=== PATIENT | male | born 1975 | race Caucasian/White ===

== ENCOUNTER 2017-06-30 14:58 | Emergency (ER) | payer MEDICAID ==
[2017-06-30] MEDS ORDERED: Sodium Chloride 0.9% 1,000 ML IV ONE ×2 (15:10→16:31)
[2017-06-30] MEDS ORDERED: Ondansetron 4 MG/2 ML SDV IVPUSH ONE (15:12)
[2017-06-30] MEDS ORDERED: Pantoprazole 40 MG Vial IVPUSH ONE (15:12)
--- NOTE | 2017-06-30 15:15 | EDM.PDOC ---
ED HPI GENERAL MEDICAL PROBLEM - General Stated Complaint: vomiting/STOMACH PAIN Time Seen by Provider: 06/30/17 14:58 Source of Information: Reports: Patient, Family History Limitations: Reports: No Limitations - History of Present Illness INITIAL COMMENTS - FREE TEXT/NARRATIVE: 42 y.o.w m with a H/O NIDDM, came with his family to the ed due to N/V/D. The symptoms started with diarrhea. Pt's son was dx'd with C Diff a few days ago. No dizziness but pt stated he feels week but is able to ambulate well. BP 113/ 62 pulse 79 Temp 36.7 Pulse ox 99 RR 17. 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) (imodium 4 mg) Upper Abdomen Pain Score (Numeric/FACES): 9 - Related Data Allergies Allergy/AdvReac Type Severity Reaction Status Date / Time No Known Allergies Allergy Verified 06/30/17 17:08 Home Meds: Home Meds Escitalopram [Lexapro] 20 mg PO DAILY 06/30/17 [History] Exenatide Microspheres [Bydureon Pen] 2 mg IM WEEKLY 06/30/17 [History] metroNIDAZOLE [Flagyl] 500 mg PO Q8H #30 tab 06/30/17 [Rx] Social & Family History - Tobacco Use Years of Tobacco use: 26 ED ROS GENERAL - Review of Systems Review Of Systems: See Below Constitutional: Reports: No Symptoms HEENT: Reports: No Symptoms Respiratory: Reports: No Symptoms Cardiovascular: Reports: No Symptoms Endocrine: Reports: High Glucose (NIDDM) GI/Abdominal: Reports: No Symptoms, Diarrhea, Nausea, Vomiting : Reports: No Symptoms Musculoskeletal: Reports: No Symptoms Skin: Reports: No Symptoms Neurological: Reports: No Symptoms Psychiatric: Reports: No Symptoms Hematologic/Lymphatic: Reports: No Symptoms Immunologic: Reports: No Symptoms ED EXAM, GI/ABD - Physical Exam Exam: See Below Exam Limited By: No Limitations General Appearance: Alert, WD/WN, Moderate Distress Eyes: Bilateral: Normal Appearance Ears: Normal External Exam Nose: Normal Inspection Throat/Mouth: Normal Inspection, Normal Lips, Normal Gums, No Airway Compromise , Other (dry mucosal membrane) Head: Atraumatic, Normocephalic Neck: Normal Inspection, Supple, Non-Tender, Full Range of Motion Respiratory/Chest: No Respiratory Distress, Lungs Clear, Normal Breath Sounds, Chest Non-Tender Cardiovascular: Normal Peripheral Pulses, Regular Rate, Rhythm, No Edema GI/Abdominal Exam: No Organomegaly, No Distention, No Abnormal Bruit, No Mass, Pelvis Stable, Tender (epigastric tenderness), Abnormal Bowel Sounds (Male) Exam: Deferred Rectal (Males) Exam: Deferred Back Exam: Normal Inspection, Full Range of Motion Extremities: Normal Inspection, Normal Range of Motion Neurological: Alert, Oriented, CN II-XII Intact, Normal Cognition, Normal Gait Psychiatric: Normal Affect, Normal Mood Skin Exam: Warm, Dry, Intact, Normal Color, No Rash Lymphatic: No Adenopathy EKG INTERPRETATION EKG Date: 07/01/17 Time: 07:35 Rhythm: A-Fib Rate (Beats/Min): 117 [place]: Normal P-Wave: Present QRS: Normal ST-T: Normal QT: Normal Comparison: NA - No Prior EKG Course - Vital Signs Text/Narrative:: 42 y.o.w m with a H/O NIDDM, came with his family to the ed due to N/V/D. The symptoms started with diarrhea. Pt's son was dx'd with C Diff a few days ago. No dizziness but pt stated he feels week but is able to ambulate well. BP 113/ 62 pulse 79 Temp 36.7 Pulse ox 99 RR 17. PE: Gastroenteritis, NIDDM Labs: ABG pH 7.47 WBC 15.4 HGB 18.6 Glc 130 HA1C 6.6 C diff and stool culture results are pending Impression: NIDDM with hyperglycemia, Dehydration, Gastroenteritis Tx: NS. Zofran, Fragyl, Imodium Reexam: Pt inproved. 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: D/C with instructions Last Recorded V/S: Last Vital Signs Temp 36.8 C 06/30/17 15:18 Pulse 75 06/30/17 17:15 Resp 16 06/30/17 17:15 BP 100/56 L 06/30/17 17:15 Pulse Ox 98 06/30/17 17:15 - Orders/Labs/Meds Orders: Active Orders 24 hr Category Date Time Status CDIFF TOXIN A+B GROUP [OP] Stat Lab 06/30/17 18:42 Ordered CULTURE-STOOL [MREF] Stat Lab 06/30/17 18:42 Ordered Labs: Laboratory Tests 06/30/17 06/30/17 06/30/17 Range/Units 15:20 15:20 15:20 WBC 15.4 H (4.5-12.0) X10-3/uL RBC 5.95 H (4.30-5.75) x10(6)uL Hgb 18.3 H (11.5-15.5) g/dL Hct 53.6 H (30.0-51.3) % MCV 90.0 (80-96) fL MCH 30.7 (27.7-33.6) pg MCHC 34.1 (32.2-35.4) g/dL RDW 12.5 (11.5-15.5) % Plt Count 215 (125-369) X10(3)uL MPV 8.8 (7.4-10.4) fL Add Manual Diff Yes Neutrophils % (Manual) 78 (46-82) % Band Neutrophils % 5 (0-6) % Lymphocytes % (Manual) 10 L (13-37) % Monocytes % (Manual) 5 (4-12) % Eosinophils % (Manual) 1 (0-5) % Basophils % (Manual) 1 (0-2) % PT 10.5 (8.7-11.1) INR 1.04 (0.89-1.13) ABG pH (7.35-7.45) ABG pCO2 (35-45) mmHg ABG pO2 (83-108) mmHg ABG HCO3 (22-26) mmol/L ABG O2 Saturation (96-97) % ABG Base Excess (-2-2) Loc Test O2 Delivery Device Sodium 138 (135-145) mmol/L Potassium 4.4 (3.5-5.3) mmol/L Chloride 103 (100-110) mmol/L Carbon Dioxide 28 (21-32) mmol/L BUN 17 (7-18) mg/dL Creatinine 0.9 (0.70-1.30) mg/dL Est Cr Clr Drug Dosing 108.01 mL/min Estimated GFR (MDRD) > 60 (>60) BUN/Creatinine Ratio 18.9 (9-20) Glucose 130 H (80-116) mg/dL Hemoglobin A1c (4.5-6.2) % Calcium 9.2 (8.6-10.2) mg/dL Urine Color (YELLOW) Urine Appearance (CLEAR) Urine pH (5.0-6.5) Ur Specific [place] (1.010-1.025) Urine Protein (NEGATIVE) mg/dL Urine Glucose (UA) (NEGATIVE) mg/dL Urine Ketones (NEGATIVE) mg/dL Urine Occult Blood (NEGATIVE) Urine Nitrite (NEGATIVE) Urine Bilirubin (NEGATIVE) Urine Urobilinogen (NEGATIVE) mg/dL Ur Leukocyte Esterase (NEGATIVE) Urine RBC (0) Urine WBC (0) Ur Squamous Epith Cells (NS,R,O) Urine Bacteria (NS) 06/30/17 06/30/17 06/30/17 Range/Units 15:20 16:08 16:15 WBC (4.5-12.0) X10-3/uL RBC (4.30-5.75) x10(6)uL Hgb (11.5-15.5) g/dL Hct (30.0-51.3) % MCV (80-96) fL MCH (27.7-33.6) pg MCHC (32.2-35.4) g/dL RDW (11.5-15.5) % Plt Count (125-369) X10(3)uL MPV (7.4-10.4) fL Add Manual Diff Neutrophils % (Manual) (46-82) % Band Neutrophils % (0-6) % Lymphocytes % (Manual) (13-37) % Monocytes % (Manual) (4-12) % Eosinophils % (Manual) (0-5) % Basophils % (Manual) (0-2) % PT (8.7-11.1) INR (0.89-1.13) ABG pH 7.47 H (7.35-7.45) ABG pCO2 29 L (35-45) mmHg ABG pO2 91 (83-108) mmHg ABG HCO3 21 L (22-26) mmol/L ABG O2 Saturation 98 H (96-97) % ABG Base Excess -1.1 (-2-2) Loc Test Passed O2 Delivery Device Room air Sodium (135-145) mmol/L Potassium (3.5-5.3) mmol/L Chloride (100-110) mmol/L Carbon Dioxide (21-32) mmol/L BUN (7-18) mg/dL Creatinine (0.70-1.30) mg/dL Est Cr Clr Drug Dosing mL/min Estimated GFR (MDRD) (>60) BUN/Creatinine Ratio (9-20) Glucose (80-116) mg/dL Hemoglobin A1c 6.6 H (4.5-6.2) % Calcium (8.6-10.2) mg/dL Urine Color Yellow (YELLOW) Urine Appearance Clear (CLEAR) Urine pH 5.0 (5.0-6.5) Ur Specific [place] 1.025 (1.010-1.025) Urine Protein Negative (NEGATIVE) mg/dL Urine Glucose (UA) Normal (NEGATIVE) mg/dL Urine Ketones Negative (NEGATIVE) mg/dL Urine Occult Blood Negative (NEGATIVE) Urine Nitrite Negative (NEGATIVE) Urine Bilirubin Negative (NEGATIVE) Urine Urobilinogen Normal (NEGATIVE) mg/dL Ur Leukocyte Esterase Negative (NEGATIVE) Urine RBC Not seen (0) Urine WBC 0-5 (0) Ur Squamous Epith Cells Few H (NS,R,O) Urine Bacteria Few H (NS) Meds: Medications Discontinued Medications Generic Name Dose Route Start Last Admin Trade Name Freq PRN Reason Stop Dose Admin Sodium Chloride 1,000 mls @ 999 mls/hr 06/30/17 15:10 06/30/17 16:20 Normal Saline IV 06/30/17 16:10 999 mls/hr .BOLUS ONE Administration Sodium Chloride 1,000 mls @ 999 mls/hr 06/30/17 16:31 06/30/17 17:18 Normal Saline IV 06/30/17 17:31 999 mls/hr .BOLUS ONE Administration Loperamide HCl 2 mg 06/30/17 18:26 Imodium Ad PO 06/30/17 18:27 ONETIME ONE Loperamide HCl Confirm 06/30/17 18:35 06/30/17 18:38 Imodium Administered 06/30/17 18:36 2 mg Dose Administration 2 mg .ROUTE .STK-MED ONE Metronidazole 500 mg 06/30/17 18:26 06/30/17 18:38 Flagyl PO 06/30/17 18:27 500 mg ONETIME ONE Administration Ondansetron HCl 8 mg 06/30/17 15:12 06/30/17 16:24 Zofran IVPUSH 06/30/17 15:13 8 mg ONETIME ONE Administration Pantoprazole Sodium 40 mg 06/30/17 15:12 06/30/17 16:24 Protonix Iv IVPUSH 06/30/17 15:13 40 mg ONETIME ONE Administration Departure - Departure Time of Disposition: 18:35 Disposition: Home, Self-Care 01 Condition: Good Clinical Impression: Dehydration, moderate, Gastroenteritis Diarrhea Qualifiers: Diarrhea type: presumed infectious Qualified Code(s): A09 - Infectious gastroenteritis and colitis, unspecified - Discharge Information Prescriptions: metroNIDAZOLE [Flagyl] 500 mg PO Q8H #30 tab Instructions: Upper Gastrointestinal Series, [id number], Abdominal Pain, Adult, [id number] Referrals: Juan Diego Rockwell MD [Primary Care Provider] - Forms: ED Department Discharge Additional Instructions: Please cont your DM meds, increase water intake, please take Flagy l as recommended, please take imodium 2 mg (1 tabl) if passing unformed stool. Stop taking Imodium if your stool is formed. Please do not take more then 8 tables ( 16mg) per day. Please follow up with your doctor in next few days, please come back if your symptoms get worse acutely. - My Orders Last 24 Hours: My Active Orders 06/30/17 18:42 CDIFF TOXIN A+B GROUP [OP] Stat CULTURE-STOOL [MREF] Stat - Assessment/Plan Last 24 Hours: My Active Orders 06/30/17 18:42 CDIFF TOXIN A+B GROUP [OP] Stat CULTURE-STOOL [MREF] Stat
[2017-06-30] MEDS ORDERED: Loperamide 2 MG Tab PO ONE (18:26)
[2017-06-30] MEDS ORDERED: metroNIDAZOLE 500 MG Tab PO ONE (18:26)
[2017-06-30] MEDS ORDERED: Loperamide 2 MG Cap ONE (18:35)
== END 2017-06-30 19:07 | disposition home or self-care (01) ==
LOC: FB.ED 14:58
DX: K52.9 Noninfective gastroenteritis and colitis, unspecified (principal); E86.0 Dehydration; E11.65 Type 2 diabetes mellitus with hyperglycemia; Z79.899 Other long term (current) drug therapy
CPT/HCPCS: 36415; 36600; 80048; 81001; 82803; 83036; 85025; 85610; 96361; 96374; 96375; 99284; A9270; C9113; J2405; J7040

== ENCOUNTER 2017-08-09 14:25 | Emergency (ER) | payer MEDICAID ==
--- NOTE | 2017-08-09 14:42 | EDM.PDOC ---
ED HPI GENERAL MEDICAL PROBLEM - General Stated Complaint: FALL Time Seen by Provider: 08/09/17 14:35 Source of Information: Reports: Patient, Family History Limitations: Reports: Physical Impairment - History of Present Illness INITIAL COMMENTS - FREE TEXT/NARRATIVE: 42 y.o.w.m -smoker-came to the ed after falling down the stairs at home, 10 feet , on his back 6 feet. No LOC. Pt came to the ed with his family, complaining of severe upper, mid and lower back pain including pain at his right ant. knee. Primary Survey: Left post alix tenderness, no ocular gaze, tongue midline. Neck : Mulugeta tenderness, c, t amd L spime midline, no step off sign, nl rectal squeeze , no paresthesia. Pt had severe nasal congestions as well. No N/V/D or any other acute medical issues. BP 149/119 Pulse 102 pulse ox 100% RR 30 Temp 98.7 Onset: Today Onset Date: 08/09/17 Onset Time: 13:00 Duration: Minutes:, Intermittent Location: Reports: Head, Back Quality: Reports: Ache, Burning, Dull, Pressure, Stabbing Severity: Moderate Improves with: Reports: Rest Worsens with: Reports: Movement Context: Reports: Trauma (Pt fell down the stairs. ) Associated Symptoms: Reports: Weakness (due to back pain) - Related Data Allergies Allergy/AdvReac Type Severity Reaction Status Date / Time No Known Allergies Allergy Verified 08/09/17 19:53 Home Meds: Home Meds Escitalopram [Lexapro] 20 mg PO DAILY 06/30/17 [History] Amoxicillin/Potassium Clav [Augmentin 875-125 Tablet] 1 each PO BID #20 tablet 08/09/17 [Rx] Ondansetron [Zofran ODT] 4 mg PO Q6H PRN #16 tab.dis 08/09/17 [Rx] Orphenadrine [Norflex] 100 mg PO BID PRN #12 tab.er 08/09/17 [Rx] oxyCODONE HCl/Acetaminophen [Percocet 5-325 mg Tablet] 1 each PO Q6HR PRN #12 tablet 08/09/17 [Rx] Past Medical History Musculoskeletal History: Reports: Back Pain, Chronic Neurological History: Reports: Neuropathy, Peripheral, Speech Problems, TIA Other Neuro History: Pt stated that they told him it was a diabetes stroke. Psychiatric History: Reports: Anxiety Endocrine/Metabolic History: Reports: Diabetes, Type II Oncologic (Cancer) History: Reports: Lung Other Oncologic History: Pt stated when he was 19 he had lung cancer. They did radiation and a biopsy. He hasn't had it checked since then. Dermatologic History: Reports: Psoriasis - Infectious Disease History Infectious Disease History: Reports: Chicken Pox - Past Surgical History HEENT Surgical History: Reports: Tonsillectomy, Other (See Below) Other HEENT Surgeries/Procedures: adnoids out in 1989 Musculoskeletal Surgical History: Reports: Arthroscopic Knee Social & Family History - Family History Family Medical History: Noncontributory - Tobacco Use Smoking Status *Q: Current Every Day Smoker Years of Tobacco use: 26 Packs/Tins Daily: 1 - Caffeine Use Caffeine Use: Reports: Coffee, Soda - Recreational Drug Use Recreational Drug Use: No Review of Systems - Review of Systems Review Of Systems: See Below Constitutional: Reports: No Symptoms Eyes: Reports: No Symptoms Ears: Reports: No Symptoms Nose: Reports: No Symptoms Mouth/Throat: Reports: No Symptoms Respiratory: Reports: No Symptoms Cardiovascular: Reports: No Symptoms GI/Abdominal: Reports: No Symptoms Genitourinary: Reports: No Symptoms Musculoskeletal: Reports: Neck Pain, Shoulder Pain, Back Pain, Leg Pain (right knee pain), Muscle Pain, Muscle Stiffness Skin: Reports: No Symptoms Neurological: Reports: No Symptoms Psychiatric: Reports: No Symptoms ED EXAM, GENERAL - Physical Exam Exam: See Below Exam Limited By: Physical Impairment (back pain) General Appearance: Alert, WD/WN, Mild Distress, Moderate Distress, Obese Eye Exam: Bilateral Eye: EOMI, Normal Fundi, Normal Inspection, PERRL Ears: Normal External Exam, Normal Canal Ear Exam: Bilateral Ear: Auricle Normal, TM normal Nose: Normal Inspection, Normal Mucosa, No Blood Throat/Mouth: Normal Inspection, Normal Lips, Normal Voice, No Airway Compromise Head: Normocephalic, Other (left post alix tenderness) Neck: Normal Inspection, Supple, Full Range of Motion, Tender Lateral Respiratory/Chest: No Respiratory Distress, Lungs Clear, Normal Breath Sounds, No Accessory Muscle Use Cardiovascular: Normal Peripheral Pulses, Regular Rate, Rhythm, No Edema, No Gallop Peripheral Pulses: 1+: Radial (L) GI/Abdominal: Normal Bowel Sounds, Soft, Non-Tender, No Organomegaly, No Mass, Pelvis Stable (Male) Exam: No Hernia, Normal Inspection Rectal (Males) Exam: Other (pt was able to squeeze his bottom) Back Exam: CVA Tenderness (R), CVA Tenderness (L), Decreased Range of Motion, Muscle Spasm, Paraspinal Tenderness, Vertebral Tenderness (L5 (minor) Extremities: Normal Inspection, Normal Range of Motion, No Pedal Edema, Normal Capillary Refill, Other (right ant knee tenderness) Neurological: Alert, Oriented, CN II-XII Intact, Normal Cognition, No Motor/ Sensory Deficits, Abnormal Gait (due to back pain) Psychiatric: Normal Affect, Normal Mood, Anxious Skin Exam: Warm, Dry, Intact, Normal Color, No Rash Lymphatic: No Adenopathy Course - Vital Signs Text/Narrative:: 42 y.o.w.m -smoker-H/O DMcame to the ed after falling down the stairs at home, 10 feet, on his back 6 feet. No LOC. Pt came to the ed with his family, complaining of severe upper, mid and lower back pain including pain at his right ant. knee. Primary Survey: Left post alix tenderness, no ocular gaze, tongue midline. Neck: [place] tenderness, c, t amd L spime midline, no step off sign , nl rectal squeeze, no paresthesia. Pt had severe nasal congestions as well. No N/V/D or any other acute medical issues. BP 149/119 Pulse 102 pulse ox 100% RR 30 Temp 98.7 PE: Morbis obese 42 y.o.w.m with back pain. Phyl collar was applied, sinus tenderness, no focal weakness Imaging: CT head: Sinusitis, [place] CT C spine Chest/abd. and pelvis were neg. Right knee: High riding patella. Labs: WBC 12. (smoker) , BMP WNL, C K 207 Glc 110 Influenza A test neg Impression: S/F fall, Sinusitis, Muscular sceletal pain uppe, mid and lower back. R knee sprain. Tx; Morphine, Norflex, ICE, Toradol (pt has knee brace at home), Rocephin, Zofran. Reexam: Improved, Pt was able to ambulate with a walker well, refused to be admitted for pain control Plan: D/C with instructions - Orders/Labs/Meds Orders: Active Orders 24 hr Category Date Time Status Cervical Spine wo Cont [CT] Stat Exams 08/09/17 14:56 Taken Chest Abdomen Pelvis w Cont [CT] Stat Exams 08/09/17 14:56 Taken Head wo Cont [CT] Stat Exams 08/09/17 14:57 Taken Knee 1V or 2V Rt [CR] Stat Exams 08/09/17 15:08 Taken Labs: Laboratory Tests 08/09/17 08/09/17 08/09/17 Range/Units 15:10 15:10 15:10 WBC 12.6 H (4.5-12.0) X10-3/uL RBC 5.59 (4.30-5.75) x10(6)uL Hgb 17.5 H (11.5-15.5) g/dL Hct 50.3 (30.0-51.3) % MCV 89.9 (80-96) fL MCH 31.3 (27.7-33.6) pg MCHC 34.9 (32.2-35.4) g/dL RDW 12.6 (11.5-15.5) % Plt Count 261 (125-369) X10(3)uL MPV 8.5 (7.4-10.4) fL Neut % (Auto) 54.3 (46-82) % Lymph % (Auto) 36.1 (13-37) % [place] % (Auto) 6.7 (4-12) % Eos % (Auto) 2 (1.0-5.0) % Baso % (Auto) 1 (0-2) % Neut # (Auto) 6.8 (1.6-8.3) # Lymph # (Auto) 4.6 (0.6-5.0) # [place]lin # (Auto) 0.8 (0.0-1.3) # Eos # (Auto) 0.3 (0.0-0.8) # Baso # (Auto) 0.1 (0.0-0.2) # Sodium 140 (135-145) mmol/L Potassium 3.9 (3.5-5.3) mmol/L Chloride 103 (100-110) mmol/L Carbon Dioxide 25 (21-32) mmol/L BUN 11 (7-18) mg/dL Creatinine 1.0 (0.70-1.30) mg/dL Est Cr Clr Drug Dosing TNP Estimated GFR (MDRD) > 60 (>60) BUN/Creatinine Ratio 11.0 (9-20) Glucose 110 (80-116) mg/dL Calcium 9.6 (8.6-10.2) mg/dL Creatine Kinase (60-160) IU/L Urine Color (YELLOW) Urine Appearance (CLEAR) Urine pH (5.0-6.5) Ur Specific [place] (1.010-1.025) Urine Protein (NEGATIVE) mg/dL Urine Glucose (UA) (NEGATIVE) mg/dL Urine Ketones (NEGATIVE) mg/dL Urine Occult Blood (NEGATIVE) Urine Nitrite (NEGATIVE) Urine Bilirubin (NEGATIVE) Urine Urobilinogen (NEGATIVE) mg/dL Ur Leukocyte Esterase (NEGATIVE) Urine RBC (0) Urine WBC (0) Ur Squamous Epith Cells (NS,R,O) Urine Bacteria (NS) Urine Opiates Screen (NEGATIVE) Ur Oxycodone Screen (NEGATIVE) Ur Propoxyphene Screen (NEGATIVE) Ur Barbituates Screen (NEGATIVE) Ur Tricyclics Screen (NEGATIVE) Ur Phencyclidine Scrn (NEGATIVE) Ur Amphetamine Screen (NEGATIVE) Urine MDMA Screen (NEGATIVE) U Benzodiazepines Scrn (NEGATIVE) U Cocaine Metab Screen (NEGATIVE) U Marijuana (THC) Screen (NEGATIVE) Ethyl Alcohol < 0.03 (<0.03) % 08/09/17 08/09/17 08/09/17 Range/Units 15:10 17:05 17:05 WBC (4.5-12.0) X10-3/uL RBC (4.30-5.75) x10(6)uL Hgb (11.5-15.5) g/dL Hct (30.0-51.3) % MCV (80-96) fL MCH (27.7-33.6) pg MCHC (32.2-35.4) g/dL RDW (11.5-15.5) % Plt Count (125-369) X10(3)uL MPV (7.4-10.4) fL Neut % (Auto) (46-82) % Lymph % (Auto) (13-37) % [place] % (Auto) (4-12) % Eos % (Auto) (1.0-5.0) % Baso % (Auto) (0-2) % Neut # (Auto) (1.6-8.3) # Lymph # (Auto) (0.6-5.0) # [place] # (Auto) (0.0-1.3) # Eos # (Auto) (0.0-0.8) # Baso # (Auto) (0.0-0.2) # Sodium (135-145) mmol/L Potassium (3.5-5.3) mmol/L Chloride (100-110) mmol/L Carbon Dioxide (21-32) mmol/L BUN (7-18) mg/dL Creatinine (0.70-1.30) mg/dL Est Cr Clr Drug Dosing Estimated GFR (MDRD) (>60) BUN/Creatinine Ratio (9-20) Glucose (80-116) mg/dL Calcium (8.6-10.2) mg/dL Creatine Kinase 207 H (60-160) IU/L Urine Color Yellow (YELLOW) Urine Appearance Clear (CLEAR) Urine pH 5.0 (5.0-6.5) Ur Specific [place] 1.020 (1.010-1.025) Urine Protein Negative (NEGATIVE) mg/dL Urine Glucose (UA) Normal (NEGATIVE) mg/dL Urine Ketones Negative (NEGATIVE) mg/dL Urine Occult Blood Negative (NEGATIVE) Urine Nitrite Negative (NEGATIVE) Urine Bilirubin Negative (NEGATIVE) Urine Urobilinogen Normal (NEGATIVE) mg/dL Ur Leukocyte Esterase Negative (NEGATIVE) Urine RBC 0-5 (0) Urine WBC 0-5 (0) Ur Squamous Epith Cells Few H (NS,R,O) Urine Bacteria Few H (NS) Urine Opiates Screen Positive H (NEGATIVE) Ur Oxycodone Screen Negative (NEGATIVE) Ur Propoxyphene Screen Negative (NEGATIVE) Ur Barbituates Screen Negative (NEGATIVE) Ur Tricyclics Screen Negative (NEGATIVE) Ur Phencyclidine Scrn Negative (NEGATIVE) Ur Amphetamine Screen Negative (NEGATIVE) Urine MDMA Screen Negative (NEGATIVE) U Benzodiazepines Scrn Negative (NEGATIVE) U Cocaine Metab Screen Negative (NEGATIVE) U Marijuana (THC) Screen Negative (NEGATIVE) Ethyl Alcohol (<0.03) % Meds: Medications Discontinued Medications Generic Name Dose Route Start Last Admin Trade Name Freq PRN Reason Stop Dose Admin Sodium Chloride 1,000 mls @ 125 mls/hr 08/09/17 15:15 08/09/17 15:08 Normal Saline IV 125 mls/hr ASDIRECTED JAYASHREE Administration Ceftriaxone Sodium 1,000 mg/ 50 mls @ 100 mls/hr 08/09/17 16:39 08/09/17 16: 54 Sodium Chloride IV 08/09/17 17:08 100 mls/hr ONETIME ONE Administration Iopamidol 137 ml 08/09/17 15:14 08/09/17 15:43 Isovue-370 (76%) IV 08/09/17 15:15 137 ml ONETIME ONE Administration Ketorolac Tromethamine 30 mg 08/09/17 15:07 08/09/17 15:22 Toradol IVPUSH 08/09/17 15:08 30 mg ONETIME ONE Administration Morphine Sulfate 2 mg 08/09/17 14:43 08/09/17 14:45 Morphine IM 08/09/17 14:44 2 mg ONETIME ONE Administration Morphine Sulfate 4 mg 08/09/17 15:02 08/09/17 15:20 Morphine IVPUSH 08/09/17 15:03 4 mg ONETIME ONE Administration Morphine Sulfate 4 mg 08/09/17 16:00 08/09/17 16:05 Morphine IVPUSH 4 mg Q6H PRN Administration Pain Ondansetron HCl 8 mg 08/09/17 17:53 08/09/17 17:57 Zofran IVPUSH 08/09/17 17:54 8 mg ONETIME ONE Administration Orphenadrine Citrate 60 mg 08/09/17 16:46 08/09/17 17:11 Norflex IM 08/09/17 16:47 60 mg ONETIME STA Administration Sodium Chloride 10 ml 08/09/17 14:50 08/09/17 19:51 Saline Flush FLUSH 10 ml ASDIRECTED PRN Administration Keep Vein Open Departure - Departure Time of Disposition: 17:41 Disposition: Home, Self-Care 01 Condition: Good Clinical Impression: Injury of back due to fall Qualifiers: Encounter type: initial encounter Qualified Code(s): S39.92XA - Unspecified injury of lower back, initial encounter Sinusitis Qualifiers: Chronicity: acute - Discharge Information Prescriptions: oxyCODONE HCl/Acetaminophen [Percocet 5-325 mg Tablet] 1 each PO Q6HR PRN #12 tablet PRN Reason: severe pain Amoxicillin/Potassium Clav [Augmentin 875-125 Tablet] 1 each PO BID #20 tablet Ondansetron [Zofran ODT] 4 mg PO Q6H PRN #16 tab.dis PRN Reason: Nausea Orphenadrine [Norflex] 100 mg PO BID PRN #12 tab.er PRN Reason: back spasm Instructions: Cyclobenzaprine tablets, Ceftriaxone injection, Back Pain, Adult , Sinusitis, Adult, [id number], Acetaminophen; Hydrocodone oral solution Referrals: Juan Diego Rockwell MD [Primary Care Provider] - Forms: ED Department Discharge Additional Instructions: Please apply ICE to the affected areas, please take Motrin for mod pain, Percocet for sever pain, please increase water intake, Norflex for muscle spasm. Augmentin as recommended. Please come back to the ED if your symptoms get worse acutely - My Orders Last 24 Hours: My Active Orders 08/09/17 14:56 Cervical Spine wo Cont [CT] Stat Chest Abdomen Pelvis w Cont [CT] Stat 08/09/17 14:57 Head wo Cont [CT] Stat 08/09/17 15:08 Knee 1V or 2V Rt [CR] Stat - Assessment/Plan Last 24 Hours: My Active Orders 08/09/17 14:56 Cervical Spine wo Cont [CT] Stat Chest Abdomen Pelvis w Cont [CT] Stat 08/09/17 14:57 Head wo Cont [CT] Stat 08/09/17 15:08 Knee 1V or 2V Rt [CR] Stat
[2017-08-09] MEDS ORDERED: Morphine 2 MG/ML Syringe IM ONE (14:43)
[2017-08-09] MEDS ORDERED: Sodium Chloride 0.9% 10 ML Syringe FLUSH PRN (14:50)
[2017-08-09] MEDS ORDERED: Morphine 4 MG/ML Syringe IVPUSH ONE (15:02)
[2017-08-09] MEDS ORDERED: Ketorolac 30 MG/ML SDV IVPUSH ONE (15:07)
[2017-08-09] MEDS ORDERED: Iopamidol 755 MG/ML 150 ML Bottle IV ONE (15:14)
[2017-08-09] MEDS ORDERED: Sodium Chloride 0.9% 1,000 ML IV SCH (15:15)
[2017-08-09] MEDS ORDERED: Morphine 4 MG/ML Syringe IVPUSH PRN (16:00)
[2017-08-09] MEDS ORDERED: cefTRIAXone 1,000 MG in Sodium Chloride 0.9% 50 ML IV ONE (16:39)
[2017-08-09] MEDS ORDERED: Acetaminophen/HYDROcodone 325-5 MG Tab PO ONE (17:36)
[2017-08-09] MEDS ORDERED: Cyclobenzaprine 10 MG Tab PO ONE (17:36)
[2017-08-09] MEDS ORDERED: Ondansetron 4 MG/2 ML SDV IVPUSH ONE (17:53)
--- NOTE | 2017-08-10 11:08 | CR ---
INDICATION: Trauma. RIGHT KNEE: Frontal and lateral views of the right knee were obtained 2017 - no comparisons. An acute fracture, dislocation, or other acute bone or joint abnormality was not suggested. Femorotibial joint spaces appear to be well maintained. IMPRESSION: Normal right knee. If symptoms persist, additional examination may be warranted such as repeat examination by x-ray or possibly nuclear bone imaging or MRI, as felt to be clinically necessary. MTDD
== END 2017-08-09 17:55 | disposition home or self-care (01) ==
LOC: FB.ED 14:35
DX: S39.92XA Unspecified injury of lower back, initial encounter (principal); J01.90 Acute sinusitis, unspecified; E11.9 Type 2 diabetes mellitus without complications; F17.210 Nicotine dependence, cigarettes, uncomplicated; Z79.899 Other long term (current) drug therapy; W10.9XXA Fall (on) (from) unspecified stairs and steps, initial encounter; Y92.009 Unspecified place in unspecified non-institutional (private) residence as the place of occurrence of the external cause
CPT/HCPCS: 36415; 70450; 71260; 72125; 73560; 74177; 80048; 80305; 81001; 82550; 85025; 87804; 96361; 96365; 96372; 96375; 96376; 99284; G0480; J0696; J1885; J2270; J2360; J2405; J7040; J7050; Q9967; A9270-GY; J7030

== ENCOUNTER 2019-05-12 17:23 | Emergency (ER) | payer MEDICAID ==
[2019-05-12] MEDS ORDERED: Sodium Chloride 0.9% 10 ML Syringe FLUSH PRN (17:52)
[2019-05-12] MEDS ORDERED: Aspirin 81 MG Tab.Chew PO ONE (17:57)
[2019-05-12] MEDS ORDERED: Aspirin 325 MG Tab.EC PO ONE (17:57)
[2019-05-12] MEDS ORDERED: Insulin Isophane NPH, Human 100 Units/ML 10 ML Vial SUBCUT ONE ×2 (17:59→18:21)
[2019-05-12] MEDS ORDERED: Sodium Chloride 0.9% 1,000 ML IV SCH (18:00)
[2019-05-12] MEDS ORDERED: Insulin Regular, Human 100 Units/ML 3 ML Vial ONE (18:48)
--- NOTE | 2019-05-13 03:25 | EDM.PDOC ---
ED HPI GENERAL MEDICAL PROBLEM - General Chief Complaint: General Stated Complaint: BLOOD SUGAR HIGH, CHEST PAINS Time Seen by Provider: 05/12/19 17:30 Source of Information: Reports: Patient History Limitations: Reports: No Limitations - History of Present Illness INITIAL COMMENTS - FREE TEXT/NARRATIVE: Patient presented to the ED because of left arm pain going to the left ant chest wall. The pain is sharp,6/10, denies any N/V. He is also concerned because of his recent diagnosis of DM2,Dyslipidemia. There is no associated abdominal pain,N/V. chest Pain Score (Numeric/FACES): 3 - Related Data Allergies Allergy/AdvReac Type Severity Reaction Status Date / Time No Known Allergies Allergy Verified 05/12/19 17:45 Home Meds: Home Meds NK [No Known Home Meds] 05/12/19 [History] Past Medical History Musculoskeletal History: Reports: Back Pain, Chronic Neurological History: Reports: Neuropathy, Peripheral, Speech Problems, TIA Other Neuro History: Pt stated that they told him it was a diabetes stroke. Psychiatric History: Reports: Anxiety Endocrine/Metabolic History: Reports: Diabetes, Type II Oncologic (Cancer) History: Reports: Lung Other Oncologic History: Pt stated when he was 19 he had lung cancer. They did radiation and a biopsy. He hasn't had it checked since then. Dermatologic History: Reports: Psoriasis - Infectious Disease History Infectious Disease History: Reports: Chicken Pox - Past Surgical History HEENT Surgical History: Reports: Tonsillectomy, Other (See Below) Other HEENT Surgeries/Procedures: adnoids out in 1989 Musculoskeletal Surgical History: Reports: Arthroscopic Knee Social & Family History - Family History Family Medical History: Noncontributory - Tobacco Use Smoking Status *Q: Current Every Day Smoker Years of Tobacco use: 32 Packs/Tins Daily: 1 - Caffeine Use Caffeine Use: Reports: Coffee, Soda - Recreational Drug Use Recreational Drug Use: No ED ROS GENERAL - Review of Systems Review Of Systems: See Below Constitutional: Reports: No Symptoms HEENT: Reports: No Symptoms Respiratory: Reports: No Symptoms Cardiovascular: Reports: Chest Pain. Denies: Dyspnea on Exertion, Palpitations Endocrine: Reports: No Symptoms, Fatigue GI/Abdominal: Reports: No Symptoms : Reports: No Symptoms Musculoskeletal: Reports: No Symptoms Skin: Reports: No Symptoms Neurological: Reports: No Symptoms Psychiatric: Reports: No Symptoms ED EXAM, GENERAL - Physical Exam Exam: See Below Exam Limited By: No Limitations General Appearance: Alert, No Apparent Distress Eye Exam: Bilateral Eye: PERRL Ears: Normal External Exam, Normal Canal, Hearing Grossly Normal Ear Exam: Bilateral Ear: TM normal Nose: Normal Inspection, Normal Mucosa, No Blood Throat/Mouth: Normal Inspection, Normal Lips, Normal Teeth, Normal Oropharynx Head: Atraumatic, Normocephalic Neck: Normal Inspection, Supple, Non-Tender, Full Range of Motion Respiratory/Chest: No Respiratory Distress, Lungs Clear, Normal Breath Sounds, No Accessory Muscle Use, Chest Non-Tender Cardiovascular: Normal Peripheral Pulses, Regular Rate, Rhythm, No Edema, No Gallop, No JVD, No Murmur, No Rub GI/Abdominal: Normal Bowel Sounds, Soft, Non-Tender, No Organomegaly (Male) Exam: No Hernia Skin Exam: Warm, Dry, Intact Course - Vital Signs Text/Narrative:: labs,EKG,CXR reviewed with the patient NS 1 L bolus ASA 324 mg po x1 Humulin 15 U SC Last Recorded V/S: Last Vital Signs Temp 36.6 C 05/12/19 17:30 Pulse 90 05/12/19 17:25 Resp 17 05/12/19 19:00 BP 118/87 05/12/19 19:00 Pulse Ox 98 05/12/19 19:00 - Orders/Labs/Meds Orders: Active Orders 24 hr Category Date Time Status Accu Check [Blood Glucose Check, Bedside] [RC] ONETIME Care 05/12/19 18:12 Active Accu Check [Blood Glucose Check, Bedside] [RC] ONETIME Care 05/12/19 19:30 Active EKG Documentation Completion [RC] ASDIRECTED Care 05/12/19 17:52 Active Saline Lock Insert [OM.PC] Routine Oth 05/12/19 17:52 Ordered EKG 12 Lead [EK] Routine Ther 05/12/19 17:50 Ordered Labs: Laboratory Tests 05/12/19 05/12/19 05/12/19 Range/Units 18:00 18:00 18:00 WBC 12.2 H (4.5-12.0) X10-3/uL RBC 5.34 (4.30-5.75) x10(6)uL Hgb 17.1 (13.5-17.8) g/dL Hct 48.7 (30.0-51.3) % MCV 91.2 (80-96) fL MCH 31.9 (27.7-33.6) pg MCHC 35.0 (32.2-35.4) g/dL RDW 12.1 (11.5-15.5) % Plt Count 190 (125-369) X10(3)uL MPV 9.1 (7.4-10.4) fL Neut % (Auto) 58.1 (46-82) % Lymph % (Auto) 33.7 (13-37) % Fisher % (Auto) 6.1 (4-12) % Eos % (Auto) 2 (1.0-5.0) % Baso % (Auto) 0 (0-2) % Neut # (Auto) 7.2 (1.6-8.3) # Lymph # (Auto) 4.1 (0.6-5.0) # Fisher # (Auto) 0.7 (0.0-1.3) # Eos # (Auto) 0.2 (0.0-0.8) # Baso # (Auto) 0.0 (0.0-0.2) # Sodium 135 (135-145) mmol/L Potassium 4.1 (3.5-5.3) mmol/L Chloride 99 L (100-110) mmol/L Carbon Dioxide 25 (21-32) mmol/L BUN 16 (7-18) mg/dL Creatinine 1.0 (0.70-1.30) mg/dL Est Cr Clr Drug Dosing 98.35 mL/min Estimated GFR (MDRD) > 60 (>60) BUN/Creatinine Ratio 16.0 (9-20) Glucose 329 H D (80-116) mg/dL Calcium 9.0 (8.6-10.2) mg/dL Total Bilirubin 0.4 (0.1-1.3) mg/dL AST 6 (5-25) IU/L ALT 25 (12-36) U/L Alkaline Phosphatase 70 (56-112) IU/L Troponin I < 0.017 L (<0.017-0.056) ng/mL Total Protein 7.2 (6.0-8.0) g/dL Albumin 3.8 (3.5-5.2) g/dL Globulin 3.4 g/dL Albumin/Globulin Ratio 1.1 Amylase 49 (25-115) U/L Lipase 287 (73-393) U/L Meds: Medications Discontinued Medications Generic Name Dose Route Start Last Admin Trade Name Gricel PRN Reason Stop Dose Admin Aspirin 324 mg 05/12/19 17:57 05/12/19 18:25 Aspirin PO 05/12/19 17:58 324 mg ONETIME ONE Administration Aspirin 325 mg 05/12/19 17:57 05/12/19 18:23 Ecotrin PO 05/12/19 17:58 Not Given ONETIME ONE Sodium Chloride 1,000 mls @ 999 mls/hr 05/12/19 18:00 05/12/19 18:15 Normal Saline IV 999 mls/hr ASDIRECTED JAYASHREE Administration Insulin Human NPH 30 unit 05/12/19 17:59 05/12/19 18:23 Novolin N SUBCUT 05/12/19 18:00 Not Given ONETIME ONE Insulin Human NPH 15 unit 05/12/19 18:21 Novolin N SUBCUT 05/12/19 18:22 ONETIME ONE Insulin Human Regular 15 unit 05/13/19 07:30 05/12/19 18:53 Humulin R SUBCUT 15 unit BIDAC JAYASHREE Administration Insulin Human Regular Confirm 05/12/19 18:48 05/12/19 19:11 Humulin R Administered 05/12/19 18:49 Not Given Dose 300 unit .ROUTE .STK-MED ONE Sodium Chloride 10 ml 05/12/19 17:52 05/12/19 18:10 Saline Flush FLUSH 10 ml ASDIRECTED PRN Administration Keep Vein Open Departure - Departure Time of Disposition: 19:00 Disposition: Home, Self-Care 01 Condition: Good Clinical Impression: Diabetes mellitus, Chest pain, Dyslipidemia - Discharge Information Instructions: Nonspecific Chest Pain Referrals: Juan Carlos Mercado MD [Primary Care Provider] - Forms: ED Department Discharge Additional Instructions: please read discharge instructions on new onset diabetes start exercising eat healthy keep your appointment tomorrow with your doctor - My Orders Last 24 Hours: My Active Orders 05/12/19 17:50 EKG 12 Lead [EK] Routine 05/12/19 17:52 EKG Documentation Completion [RC] ASDIRECTED Saline Lock Insert [OM.PC] Routine 05/12/19 18:12 Accu Check [Blood Glucose Check, Bedside] [RC] ONETIME 05/12/19 19:30 Accu Check [Blood Glucose Check, Bedside] [RC] ONETIME - Assessment/Plan Last 24 Hours: My Active Orders 05/12/19 17:50 EKG 12 Lead [EK] Routine 05/12/19 17:52 EKG Documentation Completion [RC] ASDIRECTED Saline Lock Insert [OM.PC] Routine 05/12/19 18:12 Accu Check [Blood Glucose Check, Bedside] [RC] ONETIME 05/12/19 19:30 Accu Check [Blood Glucose Check, Bedside] [RC] ONETIME
[2019-05-13] MEDS ORDERED: Insulin Regular, Human 100 Units/ML 3 ML Vial SUBCUT SCH (07:30)
== END 2019-05-12 19:42 | disposition home or self-care (01) ==
LOC: FB.ED 17:23
DX: E11.65 Type 2 diabetes mellitus with hyperglycemia (principal); R07.9 Chest pain, unspecified; E78.5 Hyperlipidemia, unspecified; F17.210 Nicotine dependence, cigarettes, uncomplicated
CPT/HCPCS: 36415; 80053; 82150; 82962; 83690; 84484; 85025; 93005; 96360; 99283; A9270; J7030; 93010; 99284; J1815-GY

== ENCOUNTER 2019-10-15 18:54 | Emergency (ER) | payer MEDICAID ==
[2019-10-15] MEDS ORDERED: Erythromycin Base 0.5% Ophth Oint 3.5 GM Tube EYEBOTH ONE (18:55)
[2019-10-15] MEDS ORDERED: Acetaminophen/HYDROcodone 325-5 MG Tab PO ONE (18:55)
[2019-10-15] MEDS ORDERED: Morphine 10 MG/ML SDV IM ONE (19:31)
--- NOTE | 2019-10-15 19:37 | EDM.PDOC ---
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 Gas complaints of severe eye pain,photophobia. bilateral eyes Pain Score (Numeric/FACES): 7 - Related Data Allergies Allergy/AdvReac Type Severity Reaction Status Date / Time No Known Allergies Allergy Verified 05/12/19 17:45 Home Meds: Home Meds NK [No Known Home Meds] 05/12/19 [History] Past Medical History Musculoskeletal History: Reports: Back Pain, Chronic Neurological History: Reports: Neuropathy, Peripheral, Speech Problems, TIA Other Neuro History: Pt stated that they told him it was a diabetes stroke. Psychiatric History: Reports: Anxiety Endocrine/Metabolic History: Reports: Diabetes, Type II Oncologic (Cancer) History: Reports: Lung Other Oncologic History: Pt stated when he was 19 he had lung cancer. They did radiation and a biopsy. He hasn't had it checked since then. Dermatologic History: Reports: Psoriasis - Infectious Disease History Infectious Disease History: Reports: Chicken Pox - Past Surgical History HEENT Surgical History: Reports: Tonsillectomy, Other (See Below) Other HEENT Surgeries/Procedures: adnoids out in 1989 Musculoskeletal Surgical History: Reports: Arthroscopic Knee Social & Family History - Family History Family Medical History: Noncontributory - Tobacco Use Smoking Status *Q: Current Some Day Smoker Years of Tobacco use: 25 Packs/Tins Daily: 1 - Caffeine Use Caffeine Use: Reports: Coffee, Soda, Tea - Recreational Drug Use Recreational Drug Use: No ED ROS ENT - Review of Systems Review Of Systems: Comprehensive ROS is negative, except as noted in HPI. ED EXAM, ENT - Physical Exam Exam: See Below Text/Narrative:: Photobobic Exam Limited By: No Limitations General Appearance: Alert Eye Exam: Bilateral Eye: Conjunctival Injection, EOMI, PERRL Course - Vital Signs Last Recorded V/S: Last Vital Signs Temp 97.5 F 10/15/19 18:54 Pulse 116 H 10/15/19 18:54 Resp 20 10/15/19 18:54 BP 130/80 10/15/19 18:54 Pulse Ox 98 10/15/19 18:54 - Orders/Labs/Meds Meds: Medications Discontinued Medications Generic Name Dose Route Start Last Admin Trade Name Gricel PRN Reason Stop Dose Admin Morphine Sulfate 10 mg 10/15/19 19:31 10/15/19 19:34 Morphine IM 10/15/19 19:32 10 mg ONETIME ONE Administration Departure - Departure Time of Disposition: 19:56 Disposition: Home, Self-Care 01 Condition: Good Clinical Impression: UV keratitis - Discharge Information Instructions: Ultraviolet Keratitis Referrals: Juan Carlos Mercado MD [Primary Care Provider] - 10/18/19 Forms: ED Department Discharge Sepsis Event Note - Evaluation Sepsis Screening Result: No Definite Risk - Focused Exam Vital Signs: Vital Signs Temp Pulse Resp BP Pulse Ox 10/15/19 18:54 97.5 F 116 H 20 130/80 98 Date Exam was Performed: 10/15/19 Time Exam was Performed: 19:56 - Problem List & Annotations (1) UV keratitis SNOMED Code(s): 7793842 Code(s): H16.139 - PHOTOKERATITIS, UNSPECIFIED EYE Status: Acute Current Visit: No - Problem List Review Problem List Initiated/Reviewed/Updated: Yes - Assessment/Plan Plan: I gave him several drops of tetracaine,and one drop pf cycloplegics on both eyes to relieve pain. Morphine 10 mg Im as well. DC home on [place] and Erythromycin eye oint
== END 2019-10-15 19:55 | disposition home or self-care (01) ==
LOC: FB.ED 18:54
DX: H16.133 Photokeratitis, bilateral (principal); E11.42 Type 2 diabetes mellitus with diabetic polyneuropathy; F17.210 Nicotine dependence, cigarettes, uncomplicated; Z86.73 Personal history of transient ischemic attack (TIA), and cerebral infarction without residual deficits
CPT/HCPCS: 96372; 99283; A9270; J2270